=== PATIENT | male | born 1940 | race Caucasian/White ===

== ENCOUNTER 2018-03-31 10:48 | Outpatient (REF) | payer MEDICARE, SELFPAY ==
[2018-03-31 21:11] LABS: ALT 18 U/L (12-78); AST 26 U/L (15-37); Alkaline Phosphatase 66 U/L (46-116); Anion Gap 9.4 mmol/L (3-11); BUN 23 mg/dL (7-18); Bilirubin, Total 0.4 mg/dL (0.2-1.0); CO2 29.6 mmol/L (21.0-32.0); Calcium 8.8 mg/dL (8.5-10.1); Chloride 103 mmol/L (98-107); Glucose 81 mg/dL (70-100); Potassium 3.3 mmol/L (3.5-5.1); Sodium 142 mmol/L (136-145); Total Protein 7.2 g/dL (6.4-8.2)
[2018-03-31 21:14] LABS: HCT 41.6 % (40.0-50.0); Mean Corp. HGB Concentration 31.3 g/dL (32.0-36.0); Mean Corpuscular Hemoglobin 26.9 pg (27.0-33.0); Mean Platelet Volume 11.9 fL (8.0-11.0); Platelet Count 198 x1000/uL (130-400); RBC 4.84 m/cumm (4.50-6.00); RBC Distribution Width 14.9 % (11.8-14.1); White Blood Cell Count 6.37 k/cumm (4.4-10.8)
== END 2018-03-31 10:49 ==
LOC: NCHCN 10:48
PROVIDERS: PCP Family Medicine; Visit Provider Family Medicine
DX: M06.9 Rheumatoid arthritis, unspecified (principal)
CPT/HCPCS: 80053; 85027

== ENCOUNTER 2018-06-02 15:06 | Outpatient (REF) | payer MEDICARE, SELFPAY ==
[2018-06-02 20:43] LABS: HCT 39.4 % (40.0-50.0); HGB 12.5 g/dL (13.5-17.5); Mean Corp. HGB Concentration 31.7 g/dL (32.0-36.0); Mean Corpuscular Hemoglobin 27.2 pg (27.0-33.0); Mean Corpuscular Volume 85.7 fL (80-95); Mean Platelet Volume 11.3 fL (8.0-11.0); Platelet Count 220 x1000/uL (130-400); RBC Distribution Width 14.6 % (11.8-14.1); White Blood Cell Count 6.57 k/cumm (4.4-10.8)
[2018-06-02 21:21] LABS: ALT 28 U/L (12-78); AST 30 U/L (15-37); Albumin 2.9 g/dL (3.4-5.0); Alkaline Phosphatase 72 U/L (46-116); Anion Gap 5.8 mmol/L (3-11); BUN 24 mg/dL (7-18); Bilirubin, Total 0.2 mg/dL (0.2-1.0); CO2 31.2 mmol/L (21.0-32.0); CREATININE 0.72 mg/dL (0.70-1.30); Calcium 8.7 mg/dL (8.5-10.1); Chloride 102 mmol/L (98-107); Glucose 92 mg/dL (70-100); Potassium 3.6 mmol/L (3.5-5.1); Sodium 139 mmol/L (136-145); Total Protein 6.9 g/dL (6.4-8.2)
== END 2018-06-02 15:26 ==
LOC: NCHCN 15:06
PROVIDERS: PCP Family Medicine; Visit Provider Family Medicine
DX: M06.9 Rheumatoid arthritis, unspecified (principal)
CPT/HCPCS: 80053; 85027

== ENCOUNTER 2018-09-26 10:45 | Outpatient (REF) | payer MEDICARE, SELFPAY ==
[2018-09-27 09:57] LABS: HCT 41.1 % (40.0-50.0); Mean Corp. HGB Concentration 31.6 g/dL (32.0-36.0); Mean Corpuscular Hemoglobin 26.5 pg (27.0-33.0); Mean Corpuscular Volume 83.7 fL (80-95); Mean Platelet Volume 11.7 fL (8.0-11.0); Platelet Count 204 x1000/uL (130-400); RBC 4.91 m/cumm (4.50-6.00); RBC Distribution Width 14.9 % (11.8-14.1); White Blood Cell Count 5.93 k/cumm (4.4-10.8)
[2018-09-27 10:19] LABS: ALT 19 U/L (12-78); AST 34 U/L (15-37); Alkaline Phosphatase 59 U/L (46-116); Anion Gap 8.1 mmol/L (3-11); BUN 35 mg/dL (7-18); Bilirubin, Total 0.4 mg/dL (0.2-1.0); CO2 31.9 mmol/L (21.0-32.0); CREATININE 0.94 mg/dL (0.70-1.30); Calcium 9.3 mg/dL (8.5-10.1); Chloride 102 mmol/L (98-107); Glucose 98 mg/dL (70-100); Potassium 3.7 mmol/L (3.5-5.1); Sodium 142 mmol/L (136-145); Total Protein 7.2 g/dL (6.4-8.2)
== END 2018-09-26 11:05 ==
LOC: NCHCN 10:45
PROVIDERS: PCP Family Medicine; Visit Provider Family Medicine
DX: M06.9 Rheumatoid arthritis, unspecified (principal)
CPT/HCPCS: 80053; 85027

== ENCOUNTER 2019-03-30 10:02 | Outpatient (REF) | payer MEDICARE, SELFPAY ==
[2019-03-30 21:29] LABS: HCT 36.3 % (40.0-50.0); HGB 11.3 g/dL (13.5-17.5); Mean Corp. HGB Concentration 31.1 g/dL (32.0-36.0); Mean Corpuscular Hemoglobin 25.6 pg (27.0-33.0); Mean Corpuscular Volume 82.1 fL (80-95); Mean Platelet Volume 11.3 fL (8.0-11.0); Platelet Count 203 x1000/uL (130-400); RBC 4.42 m/cumm (4.50-6.00); RBC Distribution Width 15.6 % (11.8-14.1); White Blood Cell Count 6.71 k/cumm (4.4-10.8)
[2019-03-30 21:42] LABS: ALT 17 U/L (12-78); AST 23 U/L (15-37); Albumin 2.7 g/dL (3.4-5.0); Alkaline Phosphatase 70 U/L (46-116); Anion Gap 9.2 mmol/L (3-11); BUN 22 mg/dL (7-18); Bilirubin, Total 0.3 mg/dL (0.2-1.0); CO2 29.8 mmol/L (21.0-32.0); CREATININE 0.91 mg/dL (0.70-1.30); Calcium 8.5 mg/dL (8.5-10.1); Chloride 102 mmol/L (98-107); Glucose 97 mg/dL (70-100); Potassium 3.4 mmol/L (3.5-5.1); Sodium 141 mmol/L (136-145); Total Protein 7.2 g/dL (6.4-8.2)
== END 2019-03-30 10:22 ==
LOC: NCHCN 10:02
PROVIDERS: PCP Family Medicine; Visit Provider Family Medicine
DX: M06.9 Rheumatoid arthritis, unspecified (principal)
CPT/HCPCS: 80053; 85027

== ENCOUNTER 2019-07-24 15:43 | Outpatient (REF) | payer MEDICARE, SELFPAY ==
[2019-07-24 21:18] LABS: HCT 36.5 % (40.0-50.0); HGB 10.9 g/dL (13.5-17.5); Mean Corp. HGB Concentration 29.9 g/dL (32.0-36.0); Mean Corpuscular Volume 77.2 fL (80-95); Mean Platelet Volume 11.3 fL (8.0-11.0); Platelet Count 245 x1000/uL (130-400); RBC 4.73 m/cumm (4.50-6.00); RBC Distribution Width 17.2 % (11.8-14.1); White Blood Cell Count 6.19 k/cumm (4.4-10.8)
[2019-07-24 21:39] LABS: Iron 22 ug/dL (65-175); Total Iron Binding Capacity 337 ug/dL (250-450); Transferrin Sat 7 % (20-55)
[2019-07-24 22:25] LABS: ALT 29 U/L (16-63); AST 28 U/L (15-37); Alkaline Phosphatase 65 U/L (46-116); Anion Gap 11.3 mmol/L (3-11); BUN 29 mg/dL (7-18); Bilirubin, Total 0.3 mg/dL (0.2-1.0); CO2 26.7 mmol/L (21.0-32.0); CREATININE 0.96 mg/dL (0.70-1.30); Calcium 8.7 mg/dL (8.5-10.1); Chloride 104 mmol/L (98-107); Folate 7.3 ng/mL (8.6-20.0); Glucose 99 mg/dL (74-106); Potassium 4.4 mmol/L (3.5-5.1); Sodium 142 mmol/L (136-145); Total Protein 7.5 g/dL (6.4-8.2); Vitamin B12 448 pg/mL (193-986)
== END 2019-07-24 16:03 ==
LOC: NCHCN 15:43
PROVIDERS: PCP Family Medicine; Visit Provider Family Medicine
DX: M06.9 Rheumatoid arthritis, unspecified (principal); R42 Dizziness and giddiness; R71.8 Other abnormality of red blood cells
CPT/HCPCS: 80053; 85027; 82607; 82746; 83540; 83550

== ENCOUNTER 2019-09-26 16:07 | Outpatient (REF) | payer MEDICARE, SELFPAY ==
[2019-09-26 21:58] LABS: Abs Immature Grans 0.01 k/cumm (0.0-0.09); Absolute Basophil Count 0.02 k/cumm (0.0-0.2); Absolute Eosinophil Count 0.13 k/cumm (0.0-0.7); Absolute Lymphocyte Count 1.39 k/cumm (1.2-3.4); Absolute Monocyte Count 0.67 k/cumm (0.11-0.7); Absolute Neutrophil Count 3.43 k/cumm (1.2-6.7); Basophils % 0.4; Eosinophils % 2.3; HCT 35.2 % (40.0-50.0); HGB 10.8 g/dL (13.5-17.5); Immature Grans % 0.2 %; Lymphocytes % 24.6; Mean Corp. HGB Concentration 30.7 g/dL (32.0-36.0); Mean Corpuscular Hemoglobin 23.4 pg (27.0-33.0); Mean Corpuscular Volume 76.4 fL (80-95); Mean Platelet Volume 10.4 fL (8.0-11.0); Monocytes % 11.9; Neutrophils % 60.6; Platelet Count 228 x1000/uL (130-400); RBC 4.61 m/cumm (4.50-6.00); White Blood Cell Count 5.65 k/cumm (4.4-10.8)
[2019-09-26 22:09] LABS: Iron 23 ug/dL (65-175)
[2019-09-26 22:33] LABS: ALT 25 U/L (16-63); AST 37 U/L (15-37); Albumin 2.9 g/dL (3.4-5.0); Alkaline Phosphatase 65 U/L (46-116); BUN 29 mg/dL (7-18); Bilirubin, Total 0.3 mg/dL (0.2-1.0); CREATININE 0.82 mg/dL (0.70-1.30); Calcium 8.4 mg/dL (8.5-10.1); Chloride 105 mmol/L (98-107); Ferritin 30 ng/mL (26-388); Glucose 102 mg/dL (74-106); Potassium 3.9 mmol/L (3.5-5.1); Sodium 142 mmol/L (136-145); Total Protein 7.1 g/dL (6.4-8.2); Vitamin B12 453 pg/mL (193-986)
[2019-09-26 22:34] LABS: Folate > 20.0 ng/mL (8.6-20.0)
== END 2019-09-26 16:27 ==
LOC: LBN 16:07
PROVIDERS: PCP Family Medicine; Visit Provider Family Medicine
DX: D64.9 Anemia, unspecified (principal); M06.9 Rheumatoid arthritis, unspecified; D52.9 Folate deficiency anemia, unspecified
CPT/HCPCS: 80053; 82607; 82728; 82746; 83540; 85025

== ENCOUNTER 2020-01-24 16:50 | Outpatient (REF) | payer MEDICARE, SELFPAY ==
[2020-01-24 20:53] LABS: Abs Immature Grans 0.02 k/cumm (0.0-0.09); Absolute Basophil Count 0.01 k/cumm (0.0-0.2); Absolute Eosinophil Count 0.21 k/cumm (0.0-0.7); Absolute Lymphocyte Count 1.52 k/cumm (1.2-3.4); Absolute Monocyte Count 0.73 k/cumm (0.11-0.7); Absolute Neutrophil Count 3.11 k/cumm (1.2-6.7); Basophils % 0.2; Eosinophils % 3.8; HCT 32.9 % (40.0-50.0); HGB 9.9 g/dL (13.5-17.5); Immature Grans % 0.4 %; Lymphocytes % 27.1; Mean Corp. HGB Concentration 30.1 g/dL (32.0-36.0); Mean Corpuscular Hemoglobin 22.4 pg (27.0-33.0); Mean Corpuscular Volume 74.6 fL (80-95); Mean Platelet Volume 11.7 fL (8.0-11.0); Neutrophils % 55.5; Platelet Count 242 x1000/uL (130-400); RBC 4.41 m/cumm (4.50-6.00); RBC Distribution Width 18.2 % (11.8-14.1)
[2020-01-24 21:32] LABS: Iron 21 ug/dL (65-175)
[2020-01-24 21:36] LABS: ALT 28 U/L (16-63); AST 32 U/L (15-37); Albumin 2.8 g/dL (3.4-5.0); Alkaline Phosphatase 61 U/L (46-116); Anion Gap 7.8 mmol/L (3-11); BUN 29 mg/dL (7-18); Bilirubin, Total 0.3 mg/dL (0.2-1.0); CO2 28.2 mmol/L (21.0-32.0); CREATININE 0.92 mg/dL (0.70-1.30); Calculated LDL 90 mg/dL (<100); Chloride 101 mmol/L (98-107); Cholesterol 155 mg/dL (<200); Ferritin 31 ng/mL (26-388); Glucose 115 mg/dL (74-106); HDL Cholesterol 32 mg/dL (40-60); Potassium 3.8 mmol/L (3.5-5.1); Sodium 137 mmol/L (136-145); Total Protein 7.2 g/dL (6.4-8.2); Triglyceride 168 mg/dL (<150)
[2020-01-24 21:46] LABS: Calcium 8.9 mg/dL (8.5-10.1)
== END 2020-01-24 17:10 ==
LOC: NCHCN 16:50
PROVIDERS: PCP Family Medicine; Visit Provider Family Medicine
DX: D64.9 Anemia, unspecified (principal); I73.9 Peripheral vascular disease, unspecified; M06.9 Rheumatoid arthritis, unspecified; D52.9 Folate deficiency anemia, unspecified; R77.0 Abnormality of albumin; E78.70 Disorder of bile acid and cholesterol metabolism, unspecified
CPT/HCPCS: 80053; 80061; 82728; 83540; 85025

== ENCOUNTER 2020-05-16 16:10 | Outpatient (REF) | payer MEDICARE, SELFPAY ==
[2020-05-16 21:28] LABS: Abs Immature Grans 0.03 10^3/uL (0.0-0.06); Absolute Basophil Count 0.02 10^3/uL (0.0-0.2); Absolute Lymphocyte Count 1.89 10^3/uL (1.2-3.4); Absolute Monocyte Count 0.75 10^3/uL (0.1-0.8); Absolute Neutrophil Count 3.65 10^3/uL (1.2-6.7); Basophils % 0.3; Eosinophils % 3.1; HCT 42.9 % (40.0-50.0); HGB 12.9 g/dL (13.5-17.5); Immature Grans % 0.5; Lymphocytes % 28.9; MCHC 30.1 % (32.0-36.0); MCV 83.3 fL (80-95); MPV 11.3 fL (8.0-11.0); Monocytes % 11.5; Neutrophils % 55.7; Nucleated RBC 0 %; RBC 5.15 10^6/uL (4.36-5.78); RDW 15.6 % (11.8-14.1); RDW-SD 46.2 fL; WBC 6.54 10^3/uL (4.4-10.8)
[2020-05-16 21:38] LABS: ALT 22 U/L (16-63); AST 29 U/L (15-37); Albumin 2.8 g/dL (3.4-5.0); Alkaline Phosphatase 69 U/L (46-116); Anion Gap 8.6 mmol/L (3-11); BUN 24 mg/dL (7-18); Bilirubin, Total 0.2 mg/dL (0.2-1.0); CO2 27.4 mmol/L (21.0-32.0); CREATININE 0.89 mg/dL (0.70-1.30); Calcium 8.8 mg/dL (8.5-10.1); Chloride 106 mmol/L (98-107); Glucose 106 mg/dL (74-106); Potassium 3.9 mmol/L (3.5-5.1); Sodium 142 mmol/L (136-145); Total Protein 7.2 g/dL (6.4-8.2)
[2020-05-16 22:39] LABS: Platelet Count 204 10^3/uL (130-400)
== END 2020-05-16 16:30 ==
LOC: NCHCN 16:10
PROVIDERS: PCP Family Medicine; Visit Provider Family Medicine
DX: D52.9 Folate deficiency anemia, unspecified (principal); D64.9 Anemia, unspecified; R77.0 Abnormality of albumin; M06.9 Rheumatoid arthritis, unspecified
CPT/HCPCS: 80053; 85025

== ENCOUNTER 2020-05-27 10:42 | Outpatient (REF) | payer MEDICARE, SELFPAY ==
[2020-05-27 21:05] LABS: HCT 41.6 % (40.0-50.0); HGB 12.6 g/dL (13.5-17.5)
== END 2020-05-27 11:02 ==
LOC: NCHCN 10:42
PROVIDERS: PCP Family Medicine; Visit Provider Family Medicine
DX: K62.5 Hemorrhage of anus and rectum (principal)
CPT/HCPCS: 85014; 85018

== ENCOUNTER 2020-11-13 17:02 | Outpatient (REF) | payer MEDICARE, SELFPAY ==
[2020-11-13 20:21] LABS: HCT 43.4 % (40.0-50.0); HGB 13.4 g/dL (13.5-17.5); MCH 25.9 pg (27.0-33.0); MCHC 30.9 % (32.0-36.0); MCV 83.8 fL (80-95); MPV 10.9 fL (8.0-11.0); Platelet Count 199 10^3/uL (130-400); RBC 5.18 10^6/uL (4.36-5.78); RDW 15.1 % (11.8-14.1); RDW-SD 46.5 fL; WBC 6.67 10^3/uL (4.4-10.8)
[2020-11-13 21:28] LABS: ALT 23 U/L (16-63); AST 24 U/L (15-37); Albumin 2.8 g/dL (3.4-5.0); Alkaline Phosphatase 71 U/L (46-116); Anion Gap 9.7 mmol/L (3-11); BUN 23 mg/dL (7-18); Bilirubin, Total 0.3 mg/dL (0.2-1.0); CO2 26.3 mmol/L (21.0-32.0); CREATININE 0.8 mg/dL (0.70-1.30); Calcium 8.8 mg/dL (8.5-10.1); Chloride 106 mmol/L (98-107); Glucose 107 mg/dL (74-106); Potassium 4.1 mmol/L (3.5-5.1); Sodium 142 mmol/L (136-145); Total Protein 7.3 g/dL (6.4-8.2)
== END 2020-11-13 17:03 | disposition home or self-care (01) ==
LOC: NCHCN 17:02
PROVIDERS: PCP Family Medicine; Visit Provider Family Medicine
DX: M06.9 Rheumatoid arthritis, unspecified (principal); M43.6 Torticollis
CPT/HCPCS: 80053; 85027

== ENCOUNTER 2021-02-12 13:28 | Outpatient (REF) | payer MEDICARE, SELFPAY ==
[2021-02-12 20:52] LABS: HCT 45.1 % (40.0-50.0); HGB 13.8 g/dL (13.5-17.5); MCH 26.8 pg (27.0-33.0); MCHC 30.6 % (32.0-36.0); MCV 87.7 fL (80-95); MPV 11.2 fL (8.0-11.0); Platelet Count 232 10^3/uL (130-400); RBC 5.14 10^6/uL (4.36-5.78); RDW 16.8 % (11.8-14.1); RDW-SD 53.9 fL; WBC 7.12 10^3/uL (4.4-10.8)
[2021-02-12 21:11] LABS: ALT 30 U/L (16-63); AST 20 U/L (15-37); Albumin 3.1 g/dL (3.4-5.0); Alkaline Phosphatase 65 U/L (46-116); Anion Gap 9.1 mmol/L (3-11); BUN 24 mg/dL (7-18); Bilirubin, Total 0.3 mg/dL (0.2-1.0); CO2 27.9 mmol/L (21.0-32.0); CREATININE 0.9 mg/dL (0.70-1.30); Calcium 8.9 mg/dL (8.5-10.1); Chloride 106 mmol/L (98-107); Glucose 109 mg/dL (74-106); Potassium 4.2 mmol/L (3.5-5.1); Sodium 143 mmol/L (136-145); Total Protein 6.8 g/dL (6.4-8.2)
== END 2021-02-12 13:29 | disposition home or self-care (01) ==
LOC: NCHCN 13:28
PROVIDERS: PCP Family Medicine; Visit Provider Family Medicine
DX: M54.2 Cervicalgia (principal); M79.18 Myalgia, other site; M06.9 Rheumatoid arthritis, unspecified
CPT/HCPCS: 80053; 85027

== ENCOUNTER 2021-05-21 21:15 | Outpatient (REF) | payer MEDICARE, SELFPAY ==
[2021-05-21 21:00] LABS: HCT 43.8 % (40.0-50.0); HGB 13.5 g/dL (13.5-17.5); MCH 27.2 pg (27.0-33.0); MCHC 30.8 % (32.0-36.0); MCV 88.1 fL (80-95); Platelet Count 208 10^3/uL (130-400); RBC 4.97 10^6/uL (4.36-5.78); RDW 13.5 % (11.8-14.1); RDW-SD 43.4 fL; WBC 9.92 10^3/uL (4.4-10.8)
[2021-05-21 21:10] LABS: ALT 22 U/L (16-63); AST 22 U/L (15-37); Albumin 3.2 g/dL (3.4-5.0); Alkaline Phosphatase 61 U/L (46-116); Anion Gap 8.2 mmol/L (3-11); BUN 22 mg/dL (7-18); Bilirubin, Total 0.4 mg/dL (0.2-1.0); CO2 29.8 mmol/L (21.0-32.0); CREATININE 0.8 mg/dL (0.70-1.30); Chloride 107 mmol/L (98-107); Glucose 92 mg/dL (74-106); Potassium 3.7 mmol/L (3.5-5.1); Sodium 145 mmol/L (136-145); Total Protein 6.9 g/dL (6.4-8.2)
== END 2021-05-21 21:16 | disposition home or self-care (01) ==
LOC: NCHCN 21:15
PROVIDERS: PCP Family Medicine; Visit Provider Family Medicine
DX: M54.2 Cervicalgia (principal); M79.18 Myalgia, other site
CPT/HCPCS: 80053; 85027